=== PATIENT | male | born 1990 | race African-American/Black ===

== ENCOUNTER 2025-03-30 11:35 | Emergency (ER) | payer OTHER ==
--- NOTE | 2025-03-30 11:59 | ED ---
ENT HPI - General Chief complaint: Dental/Oral Stated complaint: R side facial issue/SH Time Seen by Provider: 03/30/25 11:44 Source: patient, RN notes reviewed Mode of arrival: ambulatory Limitations: no limitations - History of Present Illness Initial comments: This is a 34-year-old male who presents to the emergency department for right- sided facial swelling. Patient reports a right sided facial abscess for the last couple of weeks. This is increasingly painful. He is not currently on antibiotics. He was sent in from [facility] for further evaluation. He has not gotten any drainage from this. Denies any fevers or chills. - Related Data Previous Rx's Medication Instructions Recorded Cephalexin [Keflex] 500 mg PO Q6HR 10 Days #40 cap 03/30/25 Sulfamethox-Tmp 800-160Mg [Bactrim 1 tab PO Q12HR 10 Days #20 tab 03/30/25 DS 800-160 mg] Allergies Allergy/AdvReac Type Severity Reaction Status Date / Time No Known Allergies Allergy Verified 03/30/25 11:42 Review of Systems ROS Statement: Those systems with pertinent positive or pertinent negative responses have been documented in the HPI. ROS Other: All systems not noted in ROS Statement are negative. Past Medical History Additional Past Medical History / Comment(s): TBI History of Any Multi-Drug Resistant Organisms: None Reported Past Surgical History: Orthopedic Surgery Past Psychological History: No Psychological Hx Reported Smoking Status: Current every day smoker Past Alcohol Use History: Abuse, Daily, Heavy Past Drug Use History: Cocaine, Marijuana General Exam Limitations: no limitations General appearance: alert, in no apparent distress Head exam: Present: atraumatic, normocephalic, normal inspection ENT exam: Present: other (Facial abscess along the right lower jawline) Respiratory exam: Present: normal lung sounds bilaterally. Absent: respiratory distress, wheezes, rales, rhonchi, stridor Cardiovascular Exam: Present: regular rate, normal rhythm Neurological exam: Present: alert, oriented X3, CN II-XII intact Psychiatric exam: Present: normal affect, normal mood Skin exam: Present: warm, dry, intact, normal color. Absent: rash Course Vital Signs 03/30/25 11:40 Temperature 98.2 F Pulse Rate 62 Respiratory 20 Rate Blood Pressure 120/78 O2 Sat by Pulse 99 Oximetry Procedures - Incision & Drainage Consent Obtained: verbal consent Indication: Abscess Site: face Size (cm): 3 Anesthetic Used: lidocaine 1%, with epi Amount (mLs): 4 I&D Cleaning Method: Alcohol Wipe Sterile Field Used?: Yes Scalpel Used: #11 I&D Drainage Obtained: Pus, Blood Medical Decision Making - Medical Decision Making This is a 34-year-old male who presents to the emergency department for facial swelling. Was pt. sent in by a medical professional or institution? @ -[facility] Did you speak to anyone other than the patient for history? @ -No Did you review nursing and triage notes? @ -Yes, and I agree, it is accurate with regards to the patient's symptoms. Were old charts reviewed? @ -No Differential Diagnosis? @ -Facial abscess, cellulitis, dental abscess, Francis's angina, lymphadenopathy, this is not meant to be an all-inclusive list. EKG interpreted by me (3pts min.)? @ -Not obtained X-rays interpreted by me (1pt min.)? @ -Not obtained CT interpreted by me (1pt min.)? @ -Not obtained U/S interpreted by me (1pt. min.)? @ -Not obtained What testing was considered but not performed? (CT, X-rays, U/S, labs)? Why? @ -None What meds were considered but not given? Why? @ -None Did you discuss the management of the patient with other professionals? @ -No Did you reconcile home meds? @ -No Was smoking cessation discussed for >3mins.? @ -I discussed smoking cessation for greater than 3 minutes. The risk of smoking were discussed with the patient including but not limited to risks of cancer, stroke, coronary artery disease and COPD. Also discussed with patient were multiple methods of quitting smoking. Lastly we discussed the financial cost of smoking. Was critical care preformed (if so, how long)? @ -No Were there social determinants of health that impacted care today? How? (Homelessness, low income, unemployed, alcoholism, drug addiction, transp ortation, low edu. Level, literacy, decrease access to med. care, assisted, rehab)? @ -Rehab, sent the patient in for evaluation. Was there de-escalation of care discussed even if they declined? (Discuss DNR or withdrawal of care, Hospice)? @ -No What co-morbidities impacted this encounter? (DM, HTN, Smoking, COPD, CAD, Cancer, CVA, Hep., AIDS, mental health diagnosis, sleep apnea, morbid obesity)? @ -Smoking Was patient admitted / discharged? @ -Discharged. Physical examination consistent with a superficial facial abscess. He was experiencing dental pain, however this did not appear to be a dental abscess. Incision and drainage performed and a copious amount of purulent material was expressed. He had significant improvement in discomfort and the size of the abscess afterwards. Bactrim and Keflex prescribed for further management of the abscess. Also advised to continue with warm compresses and ibuprofen and Tylenol as needed for pain control. Patient discharged back to [facility] in stable condition. Case discussed with ED attending Dr. Kincaid. Return precautions reviewed in depth, the patient is instructed to return to the emergency department with any new, worsening, or concerning symptoms. Patient verbalized understanding. Undiagnosed new problem with uncertain prognosis? @ -None Drug Therapy requiring intensive monitoring for toxicity (Heparin, Nitro, Insulin, Cardizem)? @ -None Were any procedures done? @ -Incision and drainage Diagnosis/symptom? @ -Facial abscess Acute, or Chronic, or Acute on Chronic? @ -Acute Uncomplicated (without systemic symptoms) or Complicated (systemic symptoms)? @ -Uncomplicated Side effects of treatment? @ -None Exacerbation, Progression, or Severe Exacerbation] @ -Not applicable Poses a threat to life or bodily function? @ -No Disposition Clinical Impression: Facial abscess, Nicotine dependence Disposition: HOME SELF-CARE Instructions (If sedation given, give patient instructions): Abscess Incision and Drainage (ED), Abscess (ED) Additional Instructions: Return to the emergency department with any new, worsening, or concerning symptoms. Take both antibiotics as prescribed for 10 days. Apply warm compresses. Alternate with ibuprofen and Tylenol as needed for pain relief. Prescriptions: Sulfamethox-Tmp 800-160Mg [Bactrim DS 800-160 mg] 1 tab PO Q12HR 10 Days #20 tab Cephalexin [Keflex] 500 mg PO Q6HR 10 Days #40 cap Is patient prescribed a controlled substance at d/c from ED?: No Referrals: Nonstaff,Physician [Primary Care Provider] - 1-2 days Time of Disposition: 12:43
[2025-03-30] MEDS: LIDOCAINE 1%-EPI 1:100,000 20 ML VIAL SQ STA (12:13)
[2025-03-30] MEDS: ACETAMINOPHEN TAB 500 MG TAB PO STA (12:13)
[2025-03-30] MEDS: SULFAMETHOX-TMP 800-160MG 1 EACH TAB PO STA (12:13)
[2025-03-30] MEDS: CEPHALEXIN 500 MG CAP PO STA (12:13)
[2025-03-30] MEDS: KETOROLAC 15 MG/ML 1 ML VIAL IM STA (12:14)
[2025-03-30 13:21] VITALS: BP 122/86; PULSE 64; RESP 18; TEMP 98.1
== END 2025-03-30 13:36 | disposition home or self-care (01) ==
LOC: EC 11:35
DX: L02.01 Cutaneous abscess of face (principal); F17.200 Nicotine dependence, unspecified, uncomplicated
CPT/HCPCS: 99283; 10060; 96372; J1885